=== PATIENT | male | born 1945 | race Caucasian/White ===

== ENCOUNTER 2017-08-10 09:07 | Observation (INO) | payer OTHER ==
[~2017-08-10] VITALS: Ht 167.6 cm; Wt 98.9 kg
--- OUTSIDE RECORDS SUMMARY | 2017-08-10 09:14 | XMS REPORT | Continuity of Care Document ---
Author Author [facility] Organization [facility] Address Unknown Phone Unavailable Allergies Active Description Code Type Severity Reaction Onset Reported/Identified Relationship to Patient Clinical Status Yes No Known Drug Intolerances No Known Drug Intolerances Drug Allergy Unknown N/A 02/19/2009 Yes acetaminophen acetaminophen Drug Allergy Mild ITCHING 08/12/2015 Medications There is no data. Problems Date Dx Coded Attending Type Code Diagnosis Diagnosed By 08/12/2015 Ej Hackett MD E11.9 TYPE 2 DIABETES MELLITUS WITHOUT COMPLICATIONS 08/12/2015 Ej Hackett MD E78.5 HYPERLIPIDEMIA, UNSPECIFIED 08/12/2015 Ej Hackett MD I10 ESSENTIAL (PRIMARY) HYPERTENSION 08/12/2015 Ej Hackett MD I25.10 ATHSCL HEART DISEASE OF [place] CORONARY ARTERY W/O ANG PCTRS 08/12/2015 Ej Hackett MD I25.110 ATHSCL HEART DISEASE OF [place] COR ART W UNSTABLE 08/12/2015 Ej Hackett MD I25.84 CORONARY ATHEROSCLEROSIS DUE TO CALCIFIED CORONARY 08/12/2015 Ej Hackett MD I51.9 HEART DISEASE, UNSPECIFIED 08/12/2015 Ej Hackett MD Z82.49 FAMILY HX OF [place] HEART DIS AND OTH DIS OF THE C 08/12/2015 Ej Hackett MD Z87.891 PERSONAL HISTORY OF NICOTINE DEPENDENCE 08/12/2015 Ej Hackett MD Z95.1 PRESENCE OF AORTOCORONARY BYPASS GRAFT Procedures Code Description Performed By Performed On DILATION OF 1 COR ART WITH DRUG-ELUT INTRALUM, PER Ej Hackett MD [id number] INTRODUCE OTH THERAP SUBST IN PERIPH VEIN, PERC Ej Hackett MD 01/2016 [id number] ASSIST WITH CARDIAC OUTPUT USING IMPELLER PUMP, [place] Ej Hackett MD 08/12/2015 Results Test Result Range CBC - 08/12/15 09:39 MEAN CELL HGB 25.1 pg 27.0-33.0 MEAN CELL HGB CONCENTRATION 31.9 g/dL 32.0-37.0 MEAN CELL VOLUME 78.6 fl 80.0-100.0 RED BLOOD CELL 4.35 m/cumm 4.00-6.00 RED CELL DISTRIBUTION WIDTH 15.1 % 11.0-15.6 WHITE BLOOD CELL 7.3 k/cumm 5.0-10.0 HEMOGLOBIN 10.9 gm/dL 14.0-18.0 HEMATOCRIT 34.2 % 40.0-54.0 PLATELET COUNT 238 k/cumm 150-400 METABOLIC PANEL, BASIC - 08/12/15 09:39 POTASSIUM 4.3 mmol/L 3.5-5.3 EST GFR (MDRD) > 60 mL/min > 59 ANION GAP 6 mmol/L 5-15 EST CrCl (CG) > 60 mL/min > 59 GLUCOSE 262 mg/dL 70-99 CALCIUM 8.6 mg/dL 8.5-10.1 BLOOD UREA NITROGEN 14 mg/dL 7-20 CREATININE 0.8 mg/dL 0.7-1.3 SODIUM 137 mmol/L 135-148 CHLORIDE 106 mmol/L 98-110 CARBON DIOXIDE 25 mmol/L 21-32 GLUCOSE (POC) - 08/12/15 22:09 GLUCOSE (POC) 244 mg/dL 70-99 CBC - 08/13/15 05:22 MEAN CELL HGB 25.3 pg 27.0-33.0 MEAN CELL HGB CONCENTRATION 32.1 g/dL 32.0-37.0 MEAN CELL VOLUME 78.9 fl 80.0-100.0 RED BLOOD CELL 4.03 m/cumm 4.00-6.00 RED CELL DISTRIBUTION WIDTH 15.0 % 11.0-15.6 WHITE BLOOD CELL 8.1 k/cumm 5.0-10.0 HEMOGLOBIN 10.2 gm/dL 14.0-18.0 HEMATOCRIT 31.8 % 40.0-54.0 PLATELET COUNT 219 k/cumm 150-400 METABOLIC PANEL, BASIC - 08/13/15 05:22 POTASSIUM 4.0 mmol/L 3.5-5.3 EST GFR (MDRD) > 60 mL/min > 59 ANION GAP 8 mmol/L 5-15 EST CrCl (CG) > 60 mL/min > 59 GLUCOSE 203 mg/dL 70-99 CALCIUM 8.4 mg/dL 8.5-10.1 BLOOD UREA NITROGEN 15 mg/dL 7-20 CREATININE 0.9 mg/dL 0.7-1.3 SODIUM 138 mmol/L 135-148 CHLORIDE 105 mmol/L 98-110 CARBON DIOXIDE 25 mmol/L 21-32 LIPID PANEL - 08/13/15 08:34 CHOLESTEROL/HDL RATIO 2.7 < 5.0 LDL CHOLESTEROL 50 mg/dL < 100 VLDL CHOLESTEROL 22 mg/dL < 30 TRIGLYCERIDES 111 mg/dL < 150 CHOLESTEROL 114 mg/dL < 200 HDL CHOLESTEROL 42 mg/dL > 39 Encounters ACCT No. Visit Date/Time Discharge Status Pt. Type Provider Facility Loc./Unit Complaint [id number] 08/12/2015 08:42:00 08/13/2015 12:31:00 DIS Inpatient Lew QUEEN, Ej Ballesteros [facility] W.3CE
--- NOTE | 2017-08-10 10:14 | ED Chest Pain ---
General Chief Complaint: Cardiac/General Problems Stated Complaint: ELEVATED B/P ELEVATED HEAR RATE Nursing Triage Note: ARRIVED VIA AMB TO ROOM 03. COMPLAINS OF HYPERTENSION AND HIGH PULSE RATE STARTING THIS AM. PT HAS TAKEN HIS DAILY MEDS INCLUDING X3 REGUALR STRENGTH ASA. PT TAKES DAILY NITRO BID BUT TOOK A RESCUE NITRO THIS AM FOR ANGINA. Nursing Sepsis Screen: No Definite Risk Source: patient Exam Limitations: no limitations History of Present Illness Date Seen by Provider: August 10, 2017 Time Seen by Provider: 09:50 Initial Comments Here with report of high blood pressure and high heart rate and noted that he was having his back pain that he typically gets as his angina. He has history of cardiac stent as well as open-heart surgery. Has had some weakness but no breathing problems. Denies nausea or vomiting. Did have a little bit of sweating earlier today. Timing/Duration: 1-3 hours, intermittent Severity/Quality: mild, pressure Location: central, back Activities at Onset: none Prior CP/Workup: angina, cardiac cath Modifying Factors: improves with nitroglycerin, improves with rest ASA po WINDOW MAKER: Yes NTG SL WINDOW MAKER: No Associated Symptoms: No abdominal pain; back pain; No edema, No fever/chills; nausea/vomiting; No shortness of breath; weakness Allergies and Home Medications Allergies Coded Allergies: acetaminophen (Verified Allergy, Unknown, 08/10/17) Home Medications Amlodipine Besylate 10 Mg Tablet, 10 MG PO DAILY, (Reported) Ascorbate Calcium/Bioflavonoid 1 Each Tablet, 1 TAB PO DAILY, (Reported) Aspirin 325 Mg Tablet, 325 MG PO DAILY, (Reported) Atenolol 50 Mg Tablet, 50 MG PO DAILY, (Reported) Atorvastatin Calcium 80 Mg Tablet, 40 MG PO DAILY, (Reported) TAKES 1/2 (80MG) TABLET Clopidogrel Bisulfate 75 Mg Tablet, 75 MG PO DAILY, (Reported) Ferrous Sulfate 324 Mg Tablet.dr, 324 MG PO DAILY, (Reported) Furosemide 40 Mg Tablet, 40 MG PO DAILY, (Reported) Gabapentin 100 Mg Capsule, 100 MG PO BID, (Reported) Insulin Determir 1,000 Units/10 Ml Soln, 42 UNITS SQ HS, (Reported) Liraglutide 0.6 Mg/0.1 Ml Pen.injctr, 1.2 MG SQ HS, (Reported) Loratadine 10 Mg Tablet, 10 MG PO DAILY, (Reported) Metformin HCl 1,000 Mg Tablet, 1,000 MG PO BID WITH MEALS, (Reported) Nitroglycerin 2.5 Mg Capsule.er, 2.5 MG PO BID, (Reported) Nitroglycerin 0.4 Mg Tab.subl, 0.4 MG SL UD PRN for CHEST PAIN, (Reported) Potassium Chloride 20 Meq Tablet.er, 20 MEQ PO DAILY, (Reported) Patient Home Medication List Home Medication List Reviewed: Yes Review of Systems Constitutional: see HPI EENTM: No Symptoms Reported Respiratory: Denies Cough, Denies Wheezing Cardiovascular: See HPI, Irregular Heart Rate Gastrointestinal: No Symptoms Reported Genitourinary: No Symptoms Reported Musculoskeletal: see HPI; No joint pain Skin: no symptoms reported Psychiatric/Neurological: No Symptoms Reported All Other Systems Reviewed Negative Unless Noted: Yes Past Jagiccc-Qabuvm-Vdatup Hx Past Med/Social Hx: Reviewed Nursing Past Med/Soc Hx Patient Social History Alcohol Use: Denies Use Recreational Drug Use: No Smoking Status: Former Smoker Recent Foreign Travel: No Contact w/Someone Who Travel: No Recent Infectious Disease Expo: No Recent Hopitalizations: No Past Medical History Surgeries: Yes (QUAD BYPASS, CARDIAC STENTS. ) CABG, Coronary Stent Respiratory: No Cardiac: Yes Hypertension Neurological: No Genitourinary: No Gastrointestinal: No Musculoskeletal: No Endocrine: Yes Diabetes, Insulin dep HEENT: No Cancer: No Psychosocial: No Integumentary: No Family Medical History Reviewed Nursing Family Hx No Pertinent Family Hx Physical Exam Vital Signs Vital Signs - First Documented 08/10/17 09:10 Temp 98.0 Pulse 126 Resp 18 B/P (MAP) 188/104 (132) Pulse Ox 97 O2 Delivery Room Air Capillary Refill : Less Than 3 Seconds General Appearance: No Apparent Distress, WD/WN HEENT: PERRL/EOMI, Pharynx Normal Neck: Non Tender, Supple Respiratory: Lungs Clear, Normal Breath Sounds Cardiovascular: No Murmur, Tachycardia Gastrointestinal: Non Tender, Soft Extremity: Normal Range of Motion, Non Tender Neurologic/Psychiatric: Alert, Oriented x3 Skin: Normal Color, Warm/Dry Progress/Results/Core Measures Results/Orders Lab Results Laboratory Tests Test 08/10/17 09:35 Range/Units White Blood Count 8.6 4.3-11.0 10^3/uL Red Blood Count 4.86 4.35-5.85 10^6/uL Hemoglobin 13.0 L 13.3-17.7 G/DL Hematocrit 40 40-54 % Mean Corpuscular Volume 82 80-99 FL Mean Corpuscular Hemoglobin 27 25-34 PG Mean Corpuscular Hemoglobin Concent 33 32-36 G/DL Red Cell Distribution Width 15.4 H 10.0-14.5 % Platelet Count 231 130-400 10^3/uL Mean Platelet Volume 11.0 H 7.4-10.4 FL Neutrophils (%) (Auto) 67 42-75 % Lymphocytes (%) (Auto) 18 12-44 % Monocytes (%) (Auto) 12 0-12 % Eosinophils (%) (Auto) 3 0-10 % Basophils (%) (Auto) 0 0-10 % Neutrophils # (Auto) 5.7 1.8-7.8 X 10^3 Lymphocytes # (Auto) 1.6 1.0-4.0 X 10^3 Monocytes # (Auto) 1.0 0.0-1.0 X 10^3 Eosinophils # (Auto) 0.3 0.0-0.3 10^3/uL Basophils # (Auto) 0.0 0.0-0.1 10^3/uL Prothrombin Time 14.7 12.2-14.7 SEC INR Comment 1.1 0.8-1.4 Activated Partial Thromboplast Time 31 24-35 SEC D-Dimer 0.43 0.00-0.49 UG/ML Sodium Level 138 135-145 MMOL/L Potassium Level 4.1 3.6-5.0 MMOL/L Chloride Level 107 98-107 MMOL/L Carbon Dioxide Level 22 21-32 MMOL/L Anion Gap 9 5-14 MMOL/L Blood Urea Nitrogen 16 7-18 MG/DL Creatinine 0.74 0.60-1.30 MG/DL Estimat Glomerular Filtration Rate > 60 BUN/Creatinine Ratio 22 Glucose Level 226 H 70-105 MG/DL Calcium Level 9.3 8.5-10.1 MG/DL Magnesium Level 2.0 1.8-2.4 MG/DL Total Bilirubin 1.1 H 0.1-1.0 MG/DL Aspartate Amino Transf (AST/SGOT) 25 5-34 U/L Alanine Aminotransferase (ALT/SGPT) 30 0-55 U/L Alkaline Phosphatase 75 40-136 U/L Myoglobin 64.0 10.0-92.0 NG/ML Troponin I < 0.30 <0.30 NG/ML B-Type Natriuretic Peptide 61.2 <100.0 PG/ML Total Protein 7.0 6.4-8.2 GM/DL Albumin 4.2 3.2-4.5 GM/DL Lipase 45 8-78 U/L My Orders Orders - RENATE CHARLES MD Ekg Tracing (08/10/17 09:19) Cbc With Automated Diff (08/10/17 10:07) Magnesium (08/10/17 10:07) Chest 1 View, Ap/Pa Only (08/10/17 10:07) Cardiac Profile 1 (08/10/17 10:07) Comprehensive Metabolic Panel (08/10/17 10:07) Myoglobin Serum (08/10/17 10:07) Protime With Inr (08/10/17 10:07) Partial Thromboplastin Time (08/10/17 10:07) O2 (08/10/17 10:07) Monitor-Rhythm Ecg Trace Only (08/10/17 10:07) Lipid Panel (08/11/17 06:00) Saline Lock/Iv-Start (08/10/17 10:07) Lipase (08/10/17 10:07) BNP (08/10/17 10:07) Fibrin Degradation Products (08/10/17 10:07) Metoprolol Succinate (Xl) Tab (Toprol Xl (08/10/17 10:30) General/Regular (08/10/17 Lunch) Vital Signs/I&O 08/10/17 09:10 Temp 98.0 Pulse 126 Resp 18 B/P (MAP) 188/104 (132) Pulse Ox 97 O2 Delivery Room Air Blood Pressure Mean: 132 Progress Progress Note : Progress Note Seen and evaluated. IV, labs, EKG and chest x-ray. No aspirin as patient took 3 full dose aspirin already this morning. He did take an atenolol this morning and that does not seem to be helping his heart rate or blood pressure. We will go ahead and give metoprolol 50 mg by mouth in the XL version. Monitor patient. Patient has [facility] services through [place] in [place]. Patient would like to transfer and [facility] [place] [facility]. Patient is noted to have tachycardia that increases to 160 when walking. I did contact the [facility] in [place] at 1230. They are currently on diversion and have no bed availability. This was noted in his chart. We do have the capability to care for the patient here and he is in agreement with staying here in [place] is okay with that as well given their diversion status currently. 1248: I discussed the case with the hospitalist on- call, Dr. Mcwilliams and she accepts patient for admission, observation status. I did discuss the case with Dr. Lal, on-call for cardiology and he has accepted the patient for consult. Request 2-D cardiac echo today as well as nothing by mouth after midnight. Also requesting continued rule out labs which will be ordered. Plan discussed with patient who agrees with plan. Initial ECG Impression Date: August 10, 2017 Initial ECG Impression Time: 09:22 Initial ECG Rate: 121 Initial ECG Rhythm: S.Tach Initial ECG Comparisson: No Previous ECG Available Comment Sinus tachycardia with normal axis. LVH noted. No evidence of ST elevation HI. No previous available for comparison. Interpreted by me. Diagnostic Imaging Diagonstic Imaging: Xray Plain Films/CT/US/NM/MRI: chest Comments VIA [facility]. [place], [place] NAME: [facility] REC#: [id number] PT STATUS: REG ER : 1945 PHYSICIAN: RENATE CHARLES MD ADMIT DATE: 08/10/17/ER Draft Date of Exam:08/10/17 CHEST 1 VIEW, AP/PA ONLY Indication: Hypertension and tachycardia. Comparison: None Findings: Single frontal view of the chest is obtained. Heart size is normal. The pulmonary vessels appear unremarkable. There is no pneumothorax, mediastinal widening or pleural fluid. There are postoperative changes of the mediastinum. The lungs are clear. Impression: No acute abnormalities demonstrated. Dictated on workstation # [id number] Dict: 08/10/17 1036 Trans: 08/10/17 1041 [facility] [id number] Interpreted by: HOPE KWAN DO Electronically signed by: Departure Communication (Admissions) Time/Spoke to Admitting Phy: 12:48 Time/Spoke to Consulting Phy: 12:50 Impression Primary Impression: Chest pain Qualified Codes: R07.9 - Chest pain, unspecified Additional Impression: Tachycardia Disposition: 09 ADMITTED INPATIENT Condition: Stable Admissions Decision to Admit Reason: Admit from ER (General) Decision to Admit/Date: August 10, 2017 Time/Decision to Admit Time: 12:32 RENATE CHARLES MD August 10, 2017 10:14
[2017-08-10 10:15] LABS: BASOPHILS % (AUTO) 0 % (0-10); EOSINOPHILS # (AUTO) 0.3 10^3/uL (0.0-0.3); EOSINOPHILS % (AUTO) 3 % (0-10); HEMATOCRIT 40 % (40-54); LYMPHOCYTES # (AUTO) 1.6 X 10^3 (1.0-4.0); LYMPHOCYTES % (AUTO) 18 % (12-44); MEAN CORPUSCULAR HEMOGLOBIN 27 PG (25-34); MEAN CORPUSCULAR HGB CONC 33 G/DL (32-36); MEAN CORPUSCULAR VOLUME 82 FL (80-99); MONOCYTES % (AUTO) 12 % (0-12); NEUTROPHILS # (AUTO) 5.7 X 10^3 (1.8-7.8); NEUTROPHILS % (AUTO) 67 % (42-75); PLATELET COUNT 231 10^3/uL (130-400); RED BLOOD COUNT 4.86 10^6/uL (4.35-5.85); RED CELL DISTRIBUTION WIDTH 15.4 % (10.0-14.5); WHITE BLOOD COUNT 8.6 10^3/uL (4.3-11.0)
[2017-08-10 10:21] LABS: INR 1.1 (0.8-1.4); PROTHROMBIN TIME PATIENT 14.7 SEC (12.2-14.7)
[2017-08-10 10:30] LABS: ALANINE AMINOTRANSFERASE 30 U/L (0-55); ALBUMIN 4.2 GM/DL (3.2-4.5); ALKALINE PHOSPHATASE 75 U/L (40-136); BILIRUBIN,TOTAL 1.1 MG/DL (0.1-1.0); BUN/CREATININE RATIO 22; CALCIUM 9.3 MG/DL (8.5-10.1); CARBON DIOXIDE 22 MMOL/L (21-32); CHLORIDE 107 MMOL/L (98-107); CREATININE SERUM 0.74 MG/DL (0.60-1.30); GFR ESTIMATED > 60; GLUCOSE 226 MG/DL (70-105); LIPASE 45 U/L (8-78); POTASSIUM 4.1 MMOL/L (3.6-5.0); SODIUM 138 MMOL/L (135-145)
[2017-08-10] MEDS ORDERED: meTOproloL SUCCINATE 50 MG (TOPROL XL) TAB PO SCH (10:30)
--- NOTE | 2017-08-10 10:42 | Diagnostic Imaging Report ---
Indication: Hypertension and tachycardia. Comparison: None Findings: Single frontal view of the chest is obtained. Heart size is normal. The pulmonary vessels appear unremarkable. There is no pneumothorax, mediastinal widening or pleural fluid. There are postoperative changes of the mediastinum. The lungs are clear. Impression: No acute abnormalities demonstrated. Dictated by: Dictated on workstation # [id number]
[2017-08-10] MEDS ORDERED: CLOP75TA69 PO (11:16)
[2017-08-10] MEDS ORDERED: LORA10TA7 PO (11:16)
[2017-08-10] MEDS ORDERED: ASPI-808 PO (11:16)
[2017-08-10] MEDS ORDERED: ATOR80TA76 PO (11:16)
[2017-08-10] MEDS ORDERED: ASCO1TAB12 PO (11:16)
[2017-08-10] MEDS ORDERED: POTA-51 PO (11:16)
[2017-08-10] MEDS ORDERED: GABA-486 PO (11:16)
[2017-08-10] MEDS ORDERED: AMLO10TA2 PO (11:16)
[2017-08-10] MEDS ORDERED: FERR324T4 PO (11:16)
[2017-08-10] MEDS ORDERED: NITR2.5C15 PO (11:18)
[2017-08-10] MEDS ORDERED: METF10002 PO (11:18)
[2017-08-10] MEDS ORDERED: FURO40TA4 PO (11:18)
[2017-08-10] MEDS ORDERED: ATEN50TA PO (11:18)
[2017-08-10] MEDS ORDERED: NITR0.4T39 SL (11:18)
[2017-08-10] MEDS ORDERED: LIRA0.6P SQ (11:20)
[2017-08-10] MEDS ORDERED: INSU100V5 SQ (11:20)
--- OUTSIDE RECORDS SUMMARY | 2017-08-10 13:21 | XMS REPORT | Continuity of Care Document ---
Author Author [facility] Organization [facility] Address Unknown Phone Unavailable Allergies Active Description [...] Hackett MD I25.10 ATHSCL HEART DISEASE OF [place] CORONARY ARTERY W/O ANG PCTRS 08/12/2015 Ej Hackett MD I25.110 ATHSCL HEART DISEASE OF [place] COR ART W UNSTABLE 08/12/2015 Ej Hackett [...] WITH DRUG-ELUT INTRALUM, PER Ej Hackett MD [id number] INTRODUCE OTH THERAP SUBST IN PERIPH VEIN, PERC Ej Hackett MD 01/2016 [id number] ASSIST WITH CARDIAC OUTPUT USING IMPELLER PUMP, [...] Status Pt. Type Provider Facility Loc./Unit Complaint [id number] 08/12/2015 08:42:00 08/13/2015 12:31:00 DIS Inpatient Lew QUEEN, Ej Ballesteros [facility] W.3CE
[2017-08-10 13:40] VITALS: BP 136/79
[2017-08-10] MEDS ORDERED: CLOPIDOGREL 75 MG (PLAVIX) TABLET PO SCH (14:30)
[2017-08-10] MEDS ORDERED: NITROGLYCERIN 0.4 MG SL TABS BTL 25'S SL PRN (14:30)
[2017-08-10] MEDS ORDERED: CATHETER FLUSH 10 ML SYR IV PRN (14:30)
[2017-08-10] MEDS ORDERED: NS IV 1000 ML 1,000 ML IV SCH (14:30)
[2017-08-10] MEDS ORDERED: morphine INJ 4 MG/ML 1 ML (VIAL/SYRINGE) IV PRN (14:30)
[2017-08-10] MEDS: inSUlin ASPART (NovoLOG) 1 UNIT/0.01 ML (CHARGE PER UNIT) SC SCH ×2 (14:39→22:00)
[2017-08-10 15:10] VITALS: BP 131/71
[2017-08-10] MEDS ORDERED: NITROGLYCERIN 0.4 MG SL PRN (15:15)
[2017-08-10] MEDS ORDERED: PATIENT MAY USE OWN MEDS, ALL MC SCH (15:45)
[2017-08-10] MEDS ORDERED: CALCIUM CARBONATE 500 MG (TUMS) TAB.CHEW PO PRN (16:15)
[2017-08-10] MEDS ORDERED: ONDANSETRON 4 MG/2 ML (SDV) Z0FRAN IVP PRN (16:15)
[2017-08-10] MEDS ORDERED: DOCUSATE SODIUM 100 MG (COLACE) CAP PO PRN (16:15)
[2017-08-10] MEDS ORDERED: ALPRAZolam 0.25 MG (XANAX) TAB PO PRN (16:15)
[2017-08-10] MEDS ORDERED: IBUPROFEN TABLET 200 MG TAB PO PRN (16:15)
[2017-08-10] MEDS ORDERED: fentaNYL INJECTION 100 MCG/2 ML AMP IVP PRN (16:15)
[2017-08-10 16:50] LABS: MYOGLOBIN SERUM 87.9 NG/ML (10.0-92.0)
[2017-08-10 19:10] VITALS: BP 144/75
[2017-08-10] MEDS ORDERED: VICTOZA 18 MG/3 ML PEN SQ SCH (21:00)
[2017-08-10] MEDS ORDERED: NON-FORMULARY MEDICATION 1 EA EA (Liraglutide (Victoza 2-Pak) 1.2 MG) SQ SCH (21:00)
[2017-08-10] MEDS ORDERED: NITROGLYCERIN 2.5 MG PO SCH (21:00)
[2017-08-10] MEDS ORDERED: GABAPENTIN 100 MG (NEURONTIN) CAP PO SCH (21:00)
[2017-08-10] MEDS ORDERED: inSUlin DETERMIR 1 UNIT/0.01 ML (LEVEMIR) CHARGE PER UNIT SQ SCH ×2 (21:00)
[2017-08-10] MEDS ORDERED: inSUlin DETERMIR 1000 UNITS/10 ML VIAL (LEVEMIR) SQ SCH (21:00)
[2017-08-10] MEDS: GABAPENTIN 100 MG (NEURONTIN) CAP PO SCH (22:10)
[2017-08-10] MEDS: NITROGLYCERIN 2.5 MG PO SCH (22:10)
[2017-08-11] VITALS (8 sets, daily range): BP systolic 136–196; BP diastolic 74–95
[2017-08-11 05:50] LABS: BASOPHILS % (AUTO) 1 % (0-10); EOSINOPHILS # (AUTO) 0.3 10^3/uL (0.0-0.3); EOSINOPHILS % (AUTO) 5 % (0-10); HEMATOCRIT 38 % (40-54); HEMOGLOBIN 12.5 G/DL (13.3-17.7); LYMPHOCYTES # (AUTO) 1.7 X 10^3 (1.0-4.0); LYMPHOCYTES % (AUTO) 28 % (12-44); MEAN CORPUSCULAR HEMOGLOBIN 27 PG (25-34); MEAN CORPUSCULAR HGB CONC 33 G/DL (32-36); MEAN CORPUSCULAR VOLUME 81 FL (80-99); MEAN PLATELET VOLUME 11.1 FL (7.4-10.4); MONOCYTES # (AUTO) 1.1 X 10^3 (0.0-1.0); MONOCYTES % (AUTO) 18 % (0-12); NEUTROPHILS % (AUTO) 49 % (42-75); PLATELET COUNT 210 10^3/uL (130-400); RED BLOOD COUNT 4.68 10^6/uL (4.35-5.85); RED CELL DISTRIBUTION WIDTH 15.6 % (10.0-14.5); WHITE BLOOD COUNT 6.1 10^3/uL (4.3-11.0)
[2017-08-11 06:24] LABS: CHOLESTEROL 87 MG/DL (< 200); HDL CHOLESTEROL 33 MG/DL (40-60); TRIGLYCERIDES 73 MG/DL (<150); VLDL CHOLESTEROL 15 MG/DL (5-40)
[2017-08-11 06:42] LABS: ALANINE AMINOTRANSFERASE 27 U/L (0-55); ALBUMIN 3.8 GM/DL (3.2-4.5); ALKALINE PHOSPHATASE 66 U/L (40-136); BUN/CREATININE RATIO 24; CALCIUM 8.9 MG/DL (8.5-10.1); CARBON DIOXIDE 23 MMOL/L (21-32); CHLORIDE 109 MMOL/L (98-107); CREATININE SERUM 0.68 MG/DL (0.60-1.30); GFR ESTIMATED > 60; GLUCOSE 117 MG/DL (70-105); SODIUM 141 MMOL/L (135-145); TOTAL PROTEIN 6.7 GM/DL (6.4-8.2)
[2017-08-11] MEDS ORDERED: FERROUS SULF 325 MG (IRON) TAB PO SCH (07:00)
[2017-08-11] MEDS ORDERED: FERROUS SULF PO SCH (07:00)
[2017-08-11] MEDS ORDERED: KCL 20 MEQ TAB (K-DUR) PO SCH ×2 (07:00)
[2017-08-11] MEDS ORDERED: [UNRECOGNIZED DRUG - OTHER] PO SCH (07:00)
[2017-08-11] MEDS: inSUlin ASPART (NovoLOG) 1 UNIT/0.01 ML (CHARGE PER UNIT) SC SCH ×3 (07:00→14:30)
[2017-08-11] MEDS ORDERED: ASCORBIC ACID (VIT C) 500 MG TABLET PO SCH (07:00)
[2017-08-11] MEDS ORDERED: [UNRECOGNIZED DRUG - OTHER] PO SCH (09:00)
[2017-08-11] MEDS ORDERED: FUROSEMIDE 40 MG (LASIX) TAB PO SCH ×2 (09:00)
[2017-08-11] MEDS ORDERED: NON-FORMULARY MEDICATION 1 EA EA (Ferrous Sulfate 324 MG) PO SCH (09:00)
[2017-08-11] MEDS ORDERED: LORATADINE (CLARITIN) 10 MG TAB PO SCH ×2 (09:00)
[2017-08-11] MEDS ORDERED: ATORVASTATIN CALCIUM 40 MG PO SCH (09:00)
[2017-08-11] MEDS ORDERED: ATORVASTATIN 40 MG (LIPITOR) TABLET PO SCH ×2 (09:00)
[2017-08-11] MEDS ORDERED: NON-FORMULARY MEDICATION 1 EA EA (Amlodipine Besylate 10 MG) PO SCH (09:00)
[2017-08-11] MEDS ORDERED: ASPIRIN E.C. 325 MG (ECOTRIN) TABLET PO SCH (09:00)
[2017-08-11] MEDS ORDERED: ASCORBATE CALCIUM PO SCH (09:00)
[2017-08-11] MEDS ORDERED: amLODIPine 10 MG (NORVASC) TAB PO SCH ×2 (09:00)
[2017-08-11] MEDS ORDERED: ASPIRIN 325 MG (5 GR) TABLET PO SCH ×2 (09:00)
[2017-08-11] MEDS ORDERED: NON-FORMULARY MEDICATION 1 EA EA (Atenolol 50 MG) PO SCH (09:00)
[2017-08-11] MEDS ORDERED: NON-FORMULARY MEDICATION 1 EA EA (Loratadine 10 MG) PO SCH (09:00)
[2017-08-11] MEDS ORDERED: NON-FORMULARY MEDICATION 1 EA EA (Potassium Chloride 20 MEQ) PO SCH (09:00)
[2017-08-11] MEDS ORDERED: BIOFLAVONOID PO SCH (09:00)
[2017-08-11] MEDS ORDERED: ATENOLOL 50 MG (TENORMIN) TAB PO SCH ×2 (09:00)
[2017-08-11] MEDS ORDERED: CLOPIDOGREL 75 MG (PLAVIX) TABLET PO SCH ×2 (09:00)
--- NOTE | 2017-08-11 11:09 | Short Stay Summary-Hospitalist ---
History of Present Illness HPI/Chief Complaint CC: Chest pressure HPI: This is a 72-year-old white male [facility] patient out [facility] [place] in [facility] who presented to the ER with vague chest pressure last night. He has multiple risk factors including diabetes mellitus insulin-dependent and multiple other risk factors. He reports that he took a nitroglycerin and the pain recurred prompting admission for observation. has been consulted and has arranged a Lexiscan. At the time of this dictation the Lexiscan results revealed no reversible ischemia so he was resumed on all of his home medications and sent home. Source: patient Date Seen 08/11/17 Time Seen by Provider: 09:30 Attending Physician Rosalina Mcwilliams DO PCP No,Local Physician Referring Physician Date of Admission August 10, 2017 at 13:00 Home Medications & Allergies Home Medications Reviewed patient Home Medication Reconciliation performed by pharmacy medication reconciliations medical office technician and/or nursing. Patients Allergies have been reviewed. 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[employer]) Alcohol Use: Denies Use Recreational Drug Use: No Smoking Status: Former Smoker Physical Abuse Screen: No Sexual Abuse: No Recent Foreign Travel: No Contact w/other who traveled: No Recent Hopitalizations: No Recent Infectious Disease Expo: No Immunizations Up To Date Date of Pneumonia Vaccine: August 14, 2014 Seasonal Allergies Seasonal Allergies: No Past Medical History Surgeries: CABG, Coronary Stent Cardiac: High Cholesterol, Hypertension Genitourinary: Prostate Problems Musculoskeletal: Arthritis Endocrine: Diabetes, Insulin dep Family History Reviewed Nursing Family Hx No Pertinent Family Hx, Hypertension Review of Systems Constitutional: see HPI EENTM: no symptoms reported Respiratory: short of breath Cardiovascular: chest pain Gastrointestinal: loss of appetite, nausea Genitourinary: no symptoms reported Musculoskeletal: no symptoms reported Skin: no symptoms reported Psychiatric/Neurological: No Symptoms Reported All Other Systems Reviewed Negative Unless Noted: Yes Physical Exam Physical Exam Vital Signs Vital Signs - First Documented 08/10/17 09:10 Temp 98.0 Pulse 126 Resp 18 B/P (MAP) 188/104 (132) Pulse Ox 97 O2 Delivery Room Air Capillary Refill : Less Than 3 Seconds General Appearance: No Apparent Distress, WD/WN, Chronically ill, Obese Eyes: Bilateral Eye Normal Inspection, Bilateral Eye PERRL HEENT: PERRL/EOMI, Normal ENT Inspection, Pharynx Normal Neck: Full Range of Motion, Normal Inspection, Non Tender, Supple, Carotid Bruit Respiratory: Chest Non Tender, Lungs Clear, Normal Breath Sounds, No Accessory Muscle Use, No Respiratory Distress Cardiovascular: Regular Rate, Rhythm, No Edema, No Gallop, No JVD, No Murmur, Normal Peripheral Pulses Gastrointestinal: Normal Bowel Sounds, No Organomegaly, No Pulsatile Mass, Non Tender, Soft Back: Normal Inspection, No CVA Tenderness, No Vertebral Tenderness Extremity: Normal Capillary Refill, Normal Inspection, Normal Range of Motion, Non Tender, No Calf Tenderness, No Pedal Edema Neurologic/Psychiatric: Alert, Oriented x3, No Motor/Sensory Deficits, Normal Mood/Affect Skin: Normal Color, Warm/Dry Lymphatic: No Adenopathy Results Results/Procedures Labs Laboratory Tests 08/10/17 09:35 08/11/17 04:36 Patient resulted labs reviewed. Short Stay Diagnosis Discharge Diagnosis-Short Stay Admission Diagnosis Assessment: Chest pain of uncertain etiology Coronary artery disease previous bypass surgery and stents placed Diabetes mellitus insulin-dependent Hypertension Hyperlipidemia Plan: Lexiscan and results will determine disposition Final Discharge Diagnosis Assessment: Chest pain of uncertain etiology Coronary artery disease previous bypass surgery and stents placed Diabetes mellitus insulin-dependent Hypertension Hyperlipidemia Conclusion Plan Discharge home if Lexiscan shows no reversible ischemia Resume all home meds including insulin Diagnosis/Problems Diagnosis/Problems (1) Chest pain Status: Acute Qualifiers: Qualified Codes: R07.89 - Other chest pain (2) Coronary artery disease Status: Chronic Qualifiers: Qualified Codes: I25.118 - Atherosclerotic heart disease of [place] coronary artery with other forms of angina pectoris (3) Coronary artery disease involving coronary bypass graft Status: Chronic Qualifiers: Qualified Codes: I25.708 - Atherosclerosis of coronary artery bypass graft(s ), unspecified, with other forms of angina pectoris (4) Diabetes mellitus, insulin dependent (IDDM), uncontrolled Status: Chronic Qualifiers: Qualified Codes: E10.59 - Type 1 diabetes mellitus with other circulatory complications; E10.65 - Type 1 diabetes mellitus with hyperglycemia (5) Hypertension Status: Chronic Qualifiers: Qualified Codes: I10 - Essential (primary) hypertension (6) Hyperlipidemia Status: Chronic Qualifiers: Qualified Codes: E78.2 - Mixed hyperlipidemia Clinical Quality Measures AMI/AHF: ASA po Prior to arrival: Yes DVT/VTE Risk/Contraindication: Risk Factor Score Per Nursin RFS Level Per Nursing on Admit: 2=Moderate ROSALINA MCWILLIAMS DO August 11, 2017 11:09
[2017-08-11] MEDS ORDERED: REGADENOSON 0.4 MG/5 ML SYR (LEXISCAN) IV ONE ×2 (14:38→15:00)
[2017-08-11] MEDS: GABAPENTIN 100 MG (NEURONTIN) CAP PO SCH (16:24)
[2017-08-11] MEDS: NITROGLYCERIN 2.5 MG PO SCH (16:25)
--- NOTE | 2017-08-11 17:56 | Consultation-Cardiology ---
HPI-Cardiology Cardiology Consultation: Date of Consultation 08/11/17 Date of Admission Attending Physician Rosalina Mcwilliams DO Admitting Physician Yancy,Local Physician Consulting Physician Roby LAL MD HPI: Time Seen by Provider: 10:30 Chief Complaint: Chest pain This is a 72-year-old gentleman who is a patient of [facility]. He has history of diabetes and CABG in 1999 which was done in [place]. According to the patient he also had 2 PCI afterwards. Apparently he is saphenous vein grafts to the OM and saphenous vein grafts to the RCA are occluded. He had a stress test in June 2017 for chest discomfort which showed lateral ischemia however since he has known occluded grafts, medical therapy was recommended by his [place] cardiology. He presents with a chest pain episode which was substernal and associated with back pain. He complains of fatigue however denies any other cardiac or noncardiac complains including shortness of breath, palpitations, syncope, near- syncope, nausea, vomiting. Since the [facility] was on diversion he was admitted to our hospital. Review of Systems-Cardiology Review of Systems Constitutional: As described under HPI; No As described under HPI, No no symptoms reported, No chills, No fever, No lightheadedness Eyes: No As described under HPI, No no symptoms reported, No blindness, No blurred vision, No contact lenses, No drainage, No decreased acuity, No foreign body sensation, No pain, No vision change Ears/Nose/Throat: No As described under HPI, No no symptoms reported, No chronic hearing loss, No ear discharge, No ear pain, No nasal drainage, No ulcerations Respiratory: No no symptoms reported; As described under HPI; No As described under HPI, No cough, No orthopnea, No shortness of breath, No SOB with excertion Cardiovascular: No no symptoms reported; As described under HPI; No As described under HPI; chest pain; No edema, No irregular heart rate, No lightheadedness, No palpitations Gastrointestinal: No no symptoms reported, No As described under HPI, No abdomen distended, No abdominal pain, No blood streaked bowels, No constipation , No diarrhea, No nausea, No vomiting, No stool coloration changes Genitourinary: No As described under HPI, No burning, No dysuria, No discharge , No frequency, No flank pain, No hematuria, No urgency Musculoskeletal: No no symptoms reported, No As describe under HPI; back pain; No gout, No joint pain, No joint swelling, No muscle pain, No muscle stiffness, No neck pain, No other Skin: No no symptoms reported, No As described under HPI, No change in color, No change in hair/nails, No dryness, No lesions, No lumps, No rash, No other, No skin related problems, No ulcerations, No rash on exposed areas, No ulcerations on exposed areas Psychiatric/Neurological: No no symptoms reported, No As described under HPI, No anxiety, No depression, No emotional problems, No headache, No numbness, No pre-existing deficit, No seizure, No tingling, No tremors, No weakness, No other , No focal weakness, No syncope Hematologic: No no symptoms reported, No As described under HPI, No anemia, No blood clots, No easy bleeding, No easy bruising, No swollen glands, No other, No bleeding abnormalities All Other Systems Reviewed Negative Unless Noted: Yes [id number] Hx Patient Social History Alcohol Use: Denies Use Recreational Drug Use: No Smoking Status: Former Smoker Recent Foreign Travel: No Recent Infectious Disease Expo: No Physical Abuse Screen: No Sexual Abuse: No Immunizations Up To Date Date of Pneumonia Vaccine: August 14, 2014 Past Medical History PMH As described under Assessment. Allergies and Home Medications Allergies Coded Allergies: acetaminophen (Verified Allergy, Unknown, 08/10/17) Home Medications Amlodipine Besylate 10 Mg Tablet, 10 MG PO DAILY, (Reported) Ascorbate Calcium/Bioflavonoid 1 Each Tablet, 1 TAB PO DAILY, (Reported) Aspirin 325 Mg Tablet, 325 MG PO DAILY, (Reported) Atenolol 50 Mg Tablet, 50 MG PO DAILY, (Reported) Atorvastatin Calcium 80 Mg Tablet, 40 MG PO DAILY, (Reported) TAKES 1/2 (80MG) TABLET Clopidogrel Bisulfate 75 Mg Tablet, 75 MG PO DAILY, (Reported) Ferrous Sulfate 324 Mg Tablet.dr, 324 MG PO DAILY, (Reported) Furosemide 40 Mg Tablet, 40 MG PO DAILY, (Reported) Gabapentin 100 Mg Capsule, 100 MG PO BID, (Reported) Insulin Determir 1,000 Units/10 Ml Soln, 42 UNITS SQ HS, (Reported) Liraglutide 0.6 Mg/0.1 Ml Pen.injctr, 1.2 MG SQ HS, (Reported) Loratadine 10 Mg Tablet, 10 MG PO DAILY, (Reported) Metformin HCl 1,000 Mg Tablet, 1,000 MG PO BID WITH MEALS, (Reported) Nitroglycerin 2.5 Mg Capsule.er, 2.5 MG PO BID, (Reported) Nitroglycerin 0.4 Mg Tab.subl, 0.4 MG SL UD PRN for CHEST PAIN, (Reported) Potassium Chloride 20 Meq Tablet.er, 20 MEQ PO DAILY, (Reported) Patient Home Medication List Home Medication List Reviewed: Yes Physical Exam-Cardiology Physical Exam Vital Signs/I&O 08/11/17 08/11/17 08/11/17 08/11/17 07:00 08:00 08:45 12:00 Temp 98.0 98.4 Pulse 85 86 86 Resp 18 18 B/P (MAP) 143/77 (99) 136/80 (98) Pulse Ox 96 95 O2 Delivery Room Air Room Air Room Air 08/11/17 08/11/17 08/11/17 08/11/17 13:01 14:48 14:52 16:00 Temp 97.8 Pulse 92 90 106 92 Resp 18 B/P (MAP) 168/80 (109) 196/95 (128) 165/86 (112) Pulse Ox 97 99 96 O2 Delivery Room Air 08/11/17 17:55 Pulse 92 Resp 18 B/P (MAP) 165/86 Pulse Ox 96 O2 Delivery Room Air 08/11/17 00:00 Intake Total 560 ml Balance 560 ml Capillary Refill : Less Than 3 Seconds Constitutional: appears stated age, AAO x 3; No apparent distress; well- developed, well-nourished HEENT: PERRL; No normal ENT inspection, No TMs normal, No pharynx normal, No scleral icterus (R), No scleral icterus (L), No pale conjunctivae (R), No pale conjunctivae (L), No photophobia, No TM abnormal (R), No TM abnormal (L), No pharyngeal erythema, No tonsillar exudate, No other, No discharge, No EOMI; hearing is well preserved; No hard of hearing; oral hygience is good; No ulceration, No xanthelasmas are seen Neck: No non-tender, No full range of motion, No supple, No normal inspection, No carotid bruit, No limited range of motion, No lymphadenopathy (R), No lymphadenopathy (L), No tender lateral, No tender midline, No thyromegaly, No other; carotid pulses are 2 + bilaterally; No with good upstrokes Respiratory: No accessory muscle use, No respiratory distress, No chest tender , No chest expansion is symmetric; chest is bilaterally symmetric; No lungs clear to percussion; lungs clear to auscultation; No crackles, No rhonchi, No rales, No stridor, No wheezing, No pleural rub, No other Cardiovascular: regular rate-rhythm; No irregularly irregular, No extra beats, No parasternal heave is noted, No JVD, No edema, No bradycardia, No tachycardia , No point of maximal impulse, No cardiac thrills are palpable; S1 and S2; No gallop/S3, No gallop/S4, No diastolic murmur, No systolic murmur, No friction rub, No click, No other Gastrointestinal: No tender, No soft, No round, No distended, No pulsatile mass , No organomegaly, No guarding, No rebound, No tenderness, No hernia, No mass, No audible bowel sounds, No abnormal bowel sounds, No abdominal bruits, No spleenomegaly, No other Rectal: deferred Extremities: No normal range of motion, No non-tender, No normal inspection, No pedal edema, No calf tenderness, No normal capillary refill, No pelvis stable , No calf tenderness, No inflammation, No pedal edema, No slow capillary refill , No swelling, No other, No abrasion, No clubbing, No cyanosis, No ecchymosis, No laceration, No no lower extremity edema bilateral, No significant edema, No tenderness, No wound Neurologic/Psychiatric: no motor/sensory deficits, alert, normal mood/affect, oriented x 3, power is 5/5 both on sides Skin: No normal color, No warm/dry, No cyanosis, No cool, No diaphoresis, No damp, No ecchymosis, No jaundice, No mottled, No pallor, No rash, No tattoos/ piercings, No ulcerations, No rash on exposed areas, No ulcerations on exposed areas, No other Data Review Labs Laboratory Tests 08/10/17 20:47: Glucometer 274H 08/11/17 04:36: White Blood Count 6.1, Red Blood Count 4.68, Hemoglobin 12.5L, Hematocrit 38L, Mean Corpuscular Volume 81, Mean Corpuscular Hemoglobin 27, Mean Corpuscular Hemoglobin Concent 33, Red Cell Distribution Width 15.6H, Platelet Count 210, Mean Platelet Volume 11.1H, Neutrophils (%) (Auto) 49, Lymphocytes (%) (Auto) 28 , Monocytes (%) (Auto) 18H, Eosinophils (%) (Auto) 5, Basophils (%) (Auto) 1, Neutrophils # (Auto) 3.0, Lymphocytes # (Auto) 1.7, Monocytes # (Auto) 1.1H, Eosinophils # (Auto) 0.3, Basophils # (Auto) 0.0, Sodium Level 141, Potassium Level 4.0, Chloride Level 109H, Carbon Dioxide Level 23, Anion Gap 9, Blood Urea Nitrogen 16, Creatinine 0.68, Estimat Glomerular Filtration Rate > 60, BUN/ Creatinine Ratio 24, Glucose Level 117H, Calcium Level 8.9, Total Bilirubin 1.0 , Aspartate Amino Transf (AST/SGOT) 21, Alanine Aminotransferase (ALT/SGPT) 27, Alkaline Phosphatase 66, Total Protein 6.7, Albumin 3.8, Triglycerides Level 73 , Cholesterol Level 87, LDL Cholesterol Direct 44, VLDL Cholesterol 15, HDL Cholesterol 33L 08/11/17 10:15: Glucometer 136H ECG Impression ECG Initial ECG Rhythm: Normal Sinus A/P-Cardiology Assessment/Admission Diagnosis Chest pain, History of CABG, CAD, Hypertension, Hyperlipidemia Plan Chest pain, acute coronary syndrome has been ruled out with serial negative troponin. Negative EKG. Pharmacological nuclear stress test will be scheduled today. Request echocardiogram. History of CABG, CAD, continue dual antiplatelet therapy with aspirin and Plavix. Continue statin, beta digna. Hypertension, continue outpatient antihypertensive therapy. Hyperlipidemia, continue atorvastatin. Lipid profile shows good LDL control. Thank you for your consultation. Please call me if you have any questions. Gordon Lal MD, FACP, FACC, FSCAI, FHRS, CCDS Interventional Cardiology Cardiac Electrophysiology Vascular Medicine and Endovascular Interventions Clinical Quality Measures AMI/AHF: ASA po Prior to arrival: Yes DVT/VTE Risk/Contraindication: Risk Factor Score Per Nursin RFS Level Per Nursing on Admit: 2=Moderate Roby LAL MD August 11, 2017 17:56
--- NOTE | 2017-08-11 18:40 | Cardiology Stress Test Report ---
Stress Test Report Type of NM Stress Test: Test Type: LEXISCAN 0.4MG/5ML Date of Procedure/Referring: Date of Procedure: August 11, 2017 PCP Rosalina Mcwilliams DO Admitting Physician No,Local Physician Indications: Chest pain, previous history of CABG Baseline Heart Rate: 90 Baseline Blood Pressure: Blood Pressure Systolic: 168 Blood Pressure Diastolic: 80 Baseline EKG: Baseline EKG: sinus rhythm Summary: The patient was brought to the stress lab after informed consent was taken. Lexiscan stress test was performed according to the protocol. 0.4 mg of IV Lexiscan was given. Low-grade exercise was performed. Baseline EKG showed sinus rhythm at 90 BPM. Blood pressure 168/80 mmHg. Maximum heart rate of 114 bpm and blood pressure of 198/88 mmHg. Patient did not complain of any chest pain. There were no EKG abnormalities or arrhythmias. 10.17 mCi of Myoview was given for rest imaging and 30.7 mCi of Myoview were given for stress imaging. Transient ischemic dilatation score was 1.05, ejection fraction of 45 percent. Normal perfusion imaging. Conclusion: Normal pharmacological stress test. Mild LV systolic dysfunction with global hypokinesis. Normal myocardial perfusion imaging. Roby WATTERS MD August 11, 2017 18:40
[2017-08-13 15:48] VITALS: BP 168/80
== END 2017-08-11 16:35 | disposition home or self-care (01) ==
LOC: EDUNIT# 09:07 → ER 09:10 → UNDOADMOB 13:00 → 4TH 13:00 → UNDODISOB 08-11 18:00
PROVIDERS: ADMIT Internal Medicine; ATTEND Internal Medicine
DX: R07.89 Other chest pain (principal); I25.10 Atherosclerotic heart disease of native coronary artery without angina pectoris; Z95.1 Presence of aortocoronary bypass graft; Z95.5 Presence of coronary angioplasty implant and graft; E11.9 Type 2 diabetes mellitus without complications; I10 Essential (primary) hypertension; E78.2 Mixed hyperlipidemia; Z79.4 Long term (current) use of insulin
CPT/HCPCS: 36415; 71045; 78452; 80053; 80061; 82962; 83690; 83735; 83874; 83880; 84484; 85025; 85379; 85610; 85730; 93005; 93017; 93041; 93306; G0378